=== PATIENT | female | born 1960 | race Caucasian/White ===

== ENCOUNTER 2023-04-01 10:28 | Emergency (ER) | payer OTHER ==
[2023-04-01] MEDS ORDERED: Sodium Chloride 0.9% 1,000 ML IV ONE (11:10)
[2023-04-01 11:23] LABS: BASOPHILS ABSOLUTE AUTO 0.03 K/mm3 (0.01-0.08); BASOPHILS PERCENT AUTO 0.3 % (0.1-1.2); EOSINOPHILS ABSOLUTE AUTO 0.02 K/mm3 (0.04-0.36); EOSINOPHILS PERCENT AUTO 0.2 (0.7-5.8); HEMATOCRIT 46.2 % (34.1-44.9); HEMOGLOBIN 15.1 gm/dl (11.2-15.7); IMMATURE GRAN ABSOLUTE AUTO 0.02 K/mm3 (0.00-0.10); IMMATURE GRAN PERCENT AUTO 0.2 % (<=1.0); LYMPHOCYTES ABSOLUTE AUTO 1.28 K/mm3 (1.18-3.74); LYMPHOCYTES PERCENT AUTO 11.4 % (19.3-51.7); MEAN CORPUSCULAR HEMOGLOBIN 31.1 pg (25.6-32.2); MEAN CORPUSCULAR HGB CONC 32.7 g/dl (32.2-35.5); MEAN CORPUSCULAR VOLUME 95.3 fl (79.4-94.8); MEAN PLATELET VOLUME 10.3 fl (9.4-12.3); MONOCYTES ABSOLUTE AUTO 0.38 K/mm3 (0.24-0.36); MONOCYTES PERCENT AUTO 3.4 % (4.7-12.5); NEUTROPHILS ABSOLUTE AUTO 9.49 K/mm3 (1.56-6.13); NEUTROPHILS PERCENT AUTO 84.5 % (34.0-71.1); PLATELET COUNT,PLT 282 K/mm3 (182-369); RED BLOOD CELL COUNT 4.85 M/mm3 (3.98-5.22); WHITE BLOOD CELL COUNT,WBC 11.22 K/mm3 (3.98-10.04)
[2023-04-01 11:32] LABS: ALBUMIN 3.8 g/dl (3.4-5.0); ANION GAP 17.9 (5-15); BILIRUBIN TOTAL 0.4 mg/dL (0.2-1.0); CALCIUM 9.3 mg/dL (8.5-10.1); EST CRCL DRUG DOSING (CG) 51.66 mL/min; POTASSIUM,K 3.9 mEq/L (3.5-5.1); PROTEIN TOTAL,TP 7.7 g/dl (6.4-8.2)
[2023-04-01 11:46] LABS: APPEARANCE,URINE CLEAR (Clear); BILIRUBIN,URINE 1+ (Negative); COLOR,URINE DARK YELLOW (Yellow); GLUCOSE,URINE NEGATIVE (Negative); KETONES,URINE TRACE (Negative); LEUKOCYTE ESTERASE,URINE 2+ (Negative); NITRITE,URINE NEGATIVE (Negative); OCCULT BLOOD,URINE 2+ (Negative); PH,URINE 5.5 (5.0-8.0); PROTEIN,URINE 2+ (Negative); UROBILINOGEN,URINE 0.2 (0.2-1.0)
[2023-04-01 11:56] LABS: BARBITURATE SCREEN,URINE NEGATIVE (CUTOFF=200); BENZODIAZEPINES SCREEN,URINE PRESUMPTIVE POSITIVE (CUTOFF=150); BUPRENORPHINE SCREEN,URINE PRESUMPTIVE POSITIVE (CUTOFF=10); METHADONE SCREEN, URINE NEGATIVE (CUTOFF=200); METHAMPHETAMINES SCREEN, URINE NEGATIVE (CUTOFF=500); OXYCODONE SCREEN,URINE NEGATIVE (CUT0FF=100); PROPOXYPHENE SCREEN,URINE NEGATIVE (CUTOFF=300); THC SCREEN,URINE 20 NG/ML PRESUMPTIVE POSITIVE (CUTOFF=50)
[2023-04-01 11:58] LABS: AMPHETAMINES SCREEN, URINE NEGATIVE (CUTOFF=500)
[2023-04-01] MEDS ORDERED: Prochlorperazine 10 MG/2 ML SDV IVPUSH ONE (12:08)
[2023-04-01 12:21] LABS: BACTERIA,URINE MANY /hpf (FEW); MUCUS,URINE MANY /hpf (FEW)
== END 2023-04-01 15:28 | disposition home or self-care (01) ==
LOC: JD.ED 10:28
DX: R11.2 Nausea with vomiting, unspecified (principal); F12.90 Cannabis use, unspecified, uncomplicated; I49.8 Other specified cardiac arrhythmias; Z88.0 Allergy status to penicillin; Z88.2 Allergy status to sulfonamides
CPT/HCPCS: 36415; 80053; 80306; 81001; 85025; 87086; 93005; 96361; 96374; 99284; J0780; J7030